=== PATIENT | male | born 1975 | race Caucasian/White ===

== ENCOUNTER 2016-09-28 12:17 | Emergency (ER) | payer OTHER ==
[~2016-09-28] VITALS: Ht 182.9 cm; Wt 139.0 kg
[~2016-09-28 12:17] MED LIST: METO100T PO; OMEP20TA39 PO; PERC5TAB12 PO; SERO400T PO; ULTR50TA PO
[2016-09-28 12:20] VITALS: BP 136/94; PULSE 70; RESP 16; TEMP 99.3; O2SAT 96
--- NOTE | 2016-09-28 14:24 | PD ---
HPI . right arm pain Chief Complaint: Injury Time Seen by Provider: 14:33 Travel History International Travel<30 days: No Contact w/Intl Traveler<30days: No Traveled to known affect area: No History of Present Illness HPI 41-year-old male with history of hypertension here with complaints of right arm pain since lifting object yesterday. Patient was moving object and he felt something pull in his right forearm. He is now complaining of pain in the right forearm when using his hand. He says the pain is somewhat shooting and rated as 6/10 without any movement. He says with movement pain is intensified. He had difficulty sleeping last night because of the different pain sensations he was experiencing. His primary care providers Dr. Taylor. He has no other complaints. PFSH Past Medical History Asthma: Yes Autoimmune Disease: No Anxiety: Yes Depression: Yes Heart Rhythm Problems: No Cancer: No Cardiac Catheterization: No Cardiovascular Problems: No High Cholesterol: No Chemotherapy: No Congestive Heart Failure: No Diabetes: No Diminished Hearing: No Endocrine: No Gastrointestinal Disorders: Yes GERD: Yes (GERD/GALLSTONES) Glaucoma: No Genitourinary: No Headaches: Yes Hepatitis: No Hiatal Hernia: No Hypertension: Yes Immune Disorder: No Inguinal Hernia: Yes Medical other: Yes (GERD) Musculoskeletal: Yes (BULGING DISK LOWER BACK) Neurologic: No Psychiatric: Yes (DEPRESSION) Reproductive: No Respiratory: No Migraines: Yes (OCULAR MIGRANE ON R SIDE OF HEAD WITH TEMP. LOST OF VISION 03 ) Radiation Therapy: No Thyroid Disease: No Ulcer: Yes PNEUMOCCOCAL Vaccine (Year): 2 Past Surgical History Abdominal Surgery: Yes (INGUINAL/UMBILICAL HERNIA REPAIR X3) AICD: No Cardiac Surgery: No Coronary Artery Bypass Graft: No Ear Surgery: No Endocrine Surgery: No Eye Surgery: No Genitourinary Surgery: No Gynecologic Surgery: No Joint Replacement: No Neurologic Surgery: No Oral Surgery: No Pacemaker: No Thoracic Surgery: No Tonsillectomy: Yes Other Surgery: Yes (HEMMORHOIDS AND FISSURE SURGERY 07) Social History Alcohol Use: No Tobacco Use: No Substance Use: No Allergies-Medications (Allergen,Severity, Reaction): Coded Allergies: No Known Allergies (Verified , 09/28/16) Reported Meds & Prescriptions Reported Meds & Active Scripts Active Flexeril (Cyclobenzaprine HCl) 10 Mg Tab 10 Mg PO BID Ibuprofen 800 Mg Tab 800 Mg PO TID Review of Systems General / Constitutional: No: Fever Eyes: No: Visual changes HENT: No: Headaches Cardiovascular: No: Chest Pain or Discomfort Respiratory: No: Shortness of Breath Gastrointestinal: No: Abdominal Pain Genitourinary: No: Dysuria Musculoskeletal: Positive: Pain (right arm pain) Skin: No Rash Neurologic: No: Weakness Psychiatric: No: Depression Endocrine: No: Polydipsia Hematologic/Lymphatic: No: Easy Bruising Physical Exam Narrative GENERAL: AAO x 3, no acute distress, Well-nourished, well-developed patient. SKIN: Warm and dry. No visible rashes or bruising. HEAD: Normocephalic and atraumatic. EYES: No scleral icterus. No injection or drainage. ENT: No nasal drainage noted. Mucous membranes pink. Airway patent. NECK: Supple, trachea midline. No JVD. CARDIOVASCULAR: Regular rate and rhythm without murmurs, gallops, or rubs. RESPIRATORY: Breath sounds equal bilaterally. No accessory muscle use. No rhonchi or rales. GASTROINTESTINAL: Abdomen soft, non-tender, nondistended. EXTREMITIES: No cyanosis or edema. 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 Movement is normal bilateral arms. There is a slight edema in the proximal forearm without any point tenderness or bony abnormality BACK: Nontender without obvious deformity. No CVA tenderness. PSYCH: AAO x 3, normal affect. Data Data Last Documented VS Vital Signs Date Time Temp Pulse Resp B/P Pulse Ox O2 Delivery O2 Flow Rate FiO2 09/28/16 12:20 99.3 70 16 136/94 96 MDM Medical Decision Making Medical Screen Exam Complete: Yes Emergency Medical Condition: Yes Medical Record Reviewed: Yes Differential Diagnosis Tendinitis, muscle strain, less likely acute fracture Narrative Course 41-year-old male with history of hypertension here with complaints of right arm pain since lifting object yesterday. Patient was moving object and he felt something pull in his right forearm. He is now complaining of pain in the right forearm when using his hand. He says the pain is somewhat shooting and rated as 6/10 without any movement. He says with movement pain is intensified. He had difficulty sleeping last night because of the different pain sensations he was experiencing. His primary care providers Dr. Taylor. He has no other complaints. Patient seen and examined. He appears to have a tendinitis and muscle strain. Offered pain injection in ED and patient declined. Recommend course of muscle relaxers and NSAIDs. Discussed that imaging is not indicated as this does not seem to be a bony abnormality. Patient was understanding. Advised if symptoms persist past 7-10 days, follow-up with primary care provider. Patient verbalized understanding of instructions, questions were answered, and thanked me for their care. I advised them if their condition worsens, please return to the nearest emergency room for further care. Diagnosis Primary Impression: Tendonitis Additional Impression: Muscle strain Patient Instructions: General Instructions, Muscle Strain (ED) Additional Instructions: Rest the affected area as much as possible. Ice this area for 15-20 minutes at a time. You can do this every hour or as much as tolerated. Use ibuprofen as needed for pain and inflammation. Please return to emergency department if your symptoms return or worsen. Follow up with your primary care provider. Take medications as prescribed. Muscle relaxers can cause drowsiness. Do not drive, swim or operate heavy machinery while using these medications. If symptoms persist past 7-10 days, please follow with primary care provider. Med/Other Pt SpecificInfo: Prescription(s) given Scripts Cyclobenzaprine (Flexeril)10 Mg Tab10 Mg PO BID #20 TAB Ref 0 Prov:Jorden Kern MD 09/28/16 Ibuprofen 800 Mg [id number] Mg PO TID #21 TAB Prov:Jorden Kern MD 09/28/16 Disposition: 01 DISCHARGE HOME Condition: Stable Sugey Mace Sep 28, 2016 14:24
[2016-09-28] MEDS ORDERED: IBUP800T23 PO (14:39)
[2016-09-28] MEDS ORDERED: CYCL1TAB29 PO (14:39)
== END 2016-09-28 14:46 | disposition home or self-care (01) ==
LOC: PHED 12:17 → PHEFT 14:46
DX: M77.9 Enthesopathy, unspecified (principal); S56.911A Strain of unspecified muscles, fascia and tendons at forearm level, right arm, initial encounter; I10 Essential (primary) hypertension; X50.0XXA Overexertion from strenuous movement or load, initial encounter
CPT/HCPCS: 99283

== ENCOUNTER 2016-11-13 07:42 | Emergency (ER) | payer OTHER ==
[~2016-11-13] VITALS: Ht 182.9 cm; Wt 140.0 kg
[~2016-11-13 07:42] MED LIST changes: +CYCL1TAB29 PO; +IBUP800T23 PO; -METO100T PO; -OMEP20TA39 PO; -PERC5TAB12 PO; -SERO400T PO; -ULTR50TA PO
[2016-11-13 07:48] VITALS: BP 128/94; PULSE 110; RESP 20; TEMP 100.3; O2SAT 97
[2016-11-13] MEDS ORDERED: TRAM50TA PO (08:03)
[2016-11-13] MEDS ORDERED: METO100T PO (08:03)
[2016-11-13] MEDS ORDERED: OMEP20TA PO (08:03)
--- NOTE | 2016-11-13 08:10 | PD ---
HPI Chief Complaint: Respiratory Symptoms Time Seen by Provider: 07:58 Travel History International Travel<30 days: No Contact w/Intl Traveler<30days: No Traveled to known affect area: No History of Present Illness HPI 41yo M with PMH of HTN presents to the ED with c/o productive cough for 4 days. +Rhinorrhea, nasal congestion and sob for 2 days. Unsure of fever since pt has been taking ibuprofen frequently and just it prior to ED arrival. Denies any chest pain, n/v, abdominal pain, diarrhea, focal weakness or numbness. Former cig smoker. PFSH Past Medical History Asthma: Yes Autoimmune Disease: No Anxiety: Yes Depression: Yes Heart Rhythm Problems: No Cancer: No Cardiac Catheterization: No Cardiovascular Problems: Yes High Cholesterol: No Chemotherapy: No Congestive Heart Failure: No Diabetes: No Diminished Hearing: No Endocrine: No Gastrointestinal Disorders: Yes GERD: Yes (GERD/GALLSTONES) Glaucoma: No Genitourinary: No Headaches: Yes Hepatitis: No Hiatal Hernia: No Hypertension: Yes Immune Disorder: No Inguinal Hernia: Yes Medical other: Yes (GERD) Musculoskeletal: Yes (BULGING DISK LOWER BACK) Neurologic: No Psychiatric: Yes (DEPRESSION) Reproductive: No Respiratory: No Migraines: Yes (OCULAR MIGRANE ON R SIDE OF HEAD WITH TEMP. LOST OF VISION 03 ) Radiation Therapy: No Thyroid Disease: No Ulcer: Yes PNEUMOCCOCAL Vaccine (Year): 2 Past Surgical History Abdominal Surgery: Yes (INGUINAL/UMBILICAL HERNIA REPAIR X3) AICD: No Cardiac Surgery: No Coronary Artery Bypass Graft: No Ear Surgery: No Endocrine Surgery: No Eye Surgery: No Genitourinary Surgery: No Gynecologic Surgery: No Joint Replacement: No Neurologic Surgery: No Oral Surgery: No Pacemaker: No Thoracic Surgery: No Tonsillectomy: Yes Other Surgery: Yes (HEMMORHOIDS AND FISSURE SURGERY 07) Social History Alcohol Use: No Tobacco Use: No Substance Use: No Allergies-Medications (Allergen,Severity, Reaction): Coded Allergies: No Known Allergies (Verified , 11/13/16) Reported Meds & Prescriptions Reported Meds & Active Scripts Active Acetaminophen Extra Strength (Acetaminophen) 500 Mg Tab 500 Mg PO Q6H PRN Robitussin 12 Hour Cough Liq (Dextromethorphan Polistirex Liq) 30 Mg/5 Ml Ary 10 Ml PO Q12H PRN 5 Days Deltasone (Prednisone) 20 Mg Tab 20 Mg PO BID 5 Days Ventolin Hfa 18 GM Inh (Albuterol Sulfate) 90 Mcg/Act Aer 2 Puff INH Q4H PRN Reported Tramadol (Tramadol HCl) 50 Mg Tab 50 Mg PO BID PRN Omeprazole 20 Mg Tab 20 Mg PO DAILY Metoprolol Tartrate 100 Mg Tab 100 Mg PO BID Review of Systems Except as stated in HPI: all other systems reviewed are Neg Physical Exam Narrative GENERAL: 41yo M in moderate distress. SKIN: Focused skin assessment warm and diaphoretic. HEAD: Atraumatic. Normocephalic. EYES: Pupils equal and round. No scleral icterus. No injection or drainage. ENT: Throat: Clear. Uvula midline. No exudate. TM wnl bilaterally. NECK: Trachea midline. No JVD. CARDIOVASCULAR: Regular rate and rhythm. No murmur appreciated. RESPIRATORY: + accessory muscle use. Expiratory wheezing and coarse sounds bilaterally. GASTROINTESTINAL: Abdomen soft, non-tender, nondistended. No rebound tenderness or guarding. MUSCULOSKELETAL: No obvious deformities. No clubbing. No cyanosis. Trace bilateral lower ext edema. No calf tenderness bilaterally. NEUROLOGICAL: Awake and alert. No obvious cranial nerve deficits. Motor grossly within normal limits. Normal speech. PSYCHIATRIC: Appropriate mood and affect; insight and judgment normal. Data Data Last Documented VS Vital Signs Date Time Temp Pulse Resp B/P Pulse Ox O2 Delivery O2 Flow Rate FiO2 11/13/16 09:09 98.7 93 18 140/82 95 Room Air Orders Complete Blood Count With Diff (11/13/16 08:06) Basic Metabolic Panel (Bmp) (11/13/16 08:06) B-Type Natriuretic Peptide (11/13/16 08:06) Act Partial Throm Time (Ptt) (11/13/16 08:06) Prothrombin Time / Inr (Pt) (11/13/16 08:06) Magnesium (Mg) (11/13/16 08:06) Ckmb (Isoenzyme) Profile (11/13/16 08:06) Troponin I (11/13/16 08:06) Influenzae A/B Antigen (11/13/16 08:06) Blood Culture (11/13/16 08:06) Iv Access Insert/Monitor (11/13/16 08:06) Electrocardiogram (11/13/16 08:06) Ecg Monitoring (11/13/16 08:06) Oximetry (11/13/16 08:06) Oxygen Administration (11/13/16 08:06) Chest, Single Ap (11/13/16 08:06) Sodium Chloride 0.9% Flush (Ns Flush) (11/13/16 08:15) Methylprednisolone So Succ Inj (Solumedr (11/13/16 08:15) Albuterol-Ipratropium Neb (Duoneb Neb) (11/13/16 08:15) Lactic Acid Sepsis Protocol (11/13/16 08:10) Sodium Chlor 0.9% 1000 Ml Inj (Ns 1000 M (11/13/16 08:15) Ibuprofen (Motrin) (11/13/16 09:15) Guaifen-Cod 200-20 Mg/10ml Liq (Robituss (11/13/16 09:15) Acetaminophen (Tylenol) (11/13/16 09:15) Labs Laboratory Tests Test 11/13/16 11/13/16 08:20 08:30 White Blood Count 7.2 TH/MM3 Red Blood Count 5.39 MIL/MM3 Hemoglobin 15.8 GM/DL Hematocrit 46.6 % Mean Corpuscular Volume 86.4 FL Mean Corpuscular Hemoglobin 29.3 PG Mean Corpuscular Hemoglobin 33.8 % Concent Red Cell Distribution Width 12.9 % Platelet Count 290 TH/MM3 Mean Platelet Volume 7.7 FL Neutrophils (%) (Auto) 69.7 % Lymphocytes (%) (Auto) 15.6 % Monocytes (%) (Auto) 11.3 % Eosinophils (%) (Auto) 2.7 % Basophils (%) (Auto) 0.7 % Neutrophils # (Auto) 5.0 TH/MM3 Lymphocytes # (Auto) 1.1 TH/MM3 Monocytes # (Auto) 0.8 TH/MM3 Eosinophils # (Auto) 0.2 TH/MM3 Basophils # (Auto) 0.1 TH/MM3 CBC Comment DIFF FINAL Differential Comment Prothrombin Time 9.8 SEC Prothromb Time International 0.9 RATIO Ratio Activated Partial 26.5 SEC Thromboplast Time Sodium Level 141 MEQ/L Potassium Level 4.3 MEQ/L Chloride Level 104 MEQ/L Carbon Dioxide Level 28.5 MEQ/L Anion Gap 9 MEQ/L Blood Urea Nitrogen 13 MG/DL Creatinine 1.20 MG/DL Estimat Glomerular Filtration 67 ML/MIN Rate Random Glucose 173 MG/DL Calcium Level 9.8 MG/DL Magnesium Level 2.1 MG/DL Total Creatine Kinase 61 U/L Troponin I LESS THAN 0.02 NG/ML B-Type Natriuretic Peptide 11 PG/ML Lactic Acid Level 1.9 mmol/L MDM Medical Decision Making Medical Screen Exam Complete: Yes Emergency Medical Condition: Yes Interpretation(s) EKG: NSR 96bpm. LAD. No ST segment elevation or depression. Laboratory Tests Test 11/13/16 11/13/16 08:20 08:30 White Blood Count 7.2 TH/MM3 (4.0-11.0) Red Blood Count 5.39 MIL/MM3 (4.50-5.90) Hemoglobin 15.8 GM/DL (13.0-17.0) Hematocrit 46.6 % (39.0-51.0) Mean Corpuscular Volume 86.4 FL (80.0-100.0) Mean Corpuscular Hemoglobin 29.3 PG (27.0-34.0) Mean Corpuscular Hemoglobin 33.8 % Concent (32.0-36.0) Red Cell Distribution Width 12.9 % (11.6-17.2) Platelet Count 290 TH/MM3 (150-450) Mean Platelet Volume 7.7 FL (7.0-11.0) Neutrophils (%) (Auto) 69.7 % (16.0-70.0) Lymphocytes (%) (Auto) 15.6 % (9.0-44.0) Monocytes (%) (Auto) 11.3 % (0.0-8.0) Eosinophils (%) (Auto) 2.7 % (0.0-4.0) Basophils (%) (Auto) 0.7 % (0.0-2.0) Neutrophils # (Auto) 5.0 TH/MM3 (1.8-7.7) Lymphocytes # (Auto) 1.1 TH/MM3 (1.0-4.8) Monocytes # (Auto) 0.8 TH/MM3 (0-0.9) Eosinophils # (Auto) 0.2 TH/MM3 (0-0.4) Basophils # (Auto) 0.1 TH/MM3 (0-0.2) CBC Comment DIFF FINAL Differential Comment Prothrombin Time 9.8 SEC (9.8-11.6) Prothromb Time International 0.9 RATIO Ratio Activated Partial 26.5 SEC Thromboplast Time (24.3-30.1) Sodium Level 141 MEQ/L (136-145) Potassium Level 4.3 MEQ/L (3.5-5.1) Chloride Level 104 MEQ/L (98-107) Carbon Dioxide Level 28.5 MEQ/L (21.0-32.0) Anion Gap 9 MEQ/L (5-15) Blood Urea Nitrogen 13 MG/DL (7-18) Creatinine 1.20 MG/DL (0.60-1.30) Estimat Glomerular Filtration 67 ML/MIN (>89) Rate Random Glucose 173 MG/DL (74-106) Calcium Level 9.8 MG/DL (8.5-10.1) Magnesium Level 2.1 MG/DL (1.5-2.5) Total Creatine Kinase 61 U/L (39-308) Troponin I LESS THAN 0.02 NG/ML (0.02-0.05) B-Type Natriuretic Peptide 11 PG/ML (0-100) Lactic Acid Level 1.9 mmol/L (0.4-2.0) Last Impressions Chest X-Ray 11/13/16 0806 Signed Impressions: Service Date/Time: Sunday, November 13, 2016 08:19 - CONCLUSION: 1. Right basilar atelectasis. Moreno Her MD Differential Diagnosis Pneumonia vs. URI vs. influenza vs. COPD vs. reactive airway disease vs. CHF Narrative Course 41yo M with flu like symptoms. Pt does have wheezing and coarse breath sounds and was former smoker so will treat with duonebs x3, methylprednisolone 125mg IV. Pt had temp of 100.3F and HR of 110 so lactic acid was ordered. NS IVF x1 given. Labs reviewed, no leukocytosis. Troponin negative. BNP 11. Lactic acid 1.9. Influenza negative. CXR showed right basilar atelectasis. Pt reevaluated at bedside. Pt is breathing better but is complaining about the cough. Lung exam showed improved air movement and expiratory wheezing. HR: 90s. Pt given acetaminophen and robitussin and reevaluated at bedside. States cough and pain has improved. Pt is well appearing. Lung exam has improved. Temp is 98.7F. Return precautions given. Diagnosis Primary Impression: URI (upper respiratory infection) Qualified Code: J06.9 - Upper respiratory tract infection, unspecified type Patient Instructions: General Instructions Departure Forms: Tests/Procedures, Work Release Enter return to work date: November 16, 2016 Additional Instructions: Please follow up with your PMD in 2-3 days. Return to the ED if symptoms worsen. Med/Other Pt SpecificInfo: Prescription(s) given Scripts Acetaminophen (Acetaminophen Extra Strength)500 Mg [id number] Mg PO Q6H PRN (PAIN SCALE 1 TO 4) #20 TAB Ref 0 Prov:Chaparrita Doherty DO 11/13/16 Dextromethorphan Polistirex Liq (Robitussin 12 Hour Cough Liq)30 Mg/5 Ml Sus10 Ml PO Q12H PRN (COUGH) 5 Days Ref 0 Prov:Chaparrita Doherty DO 11/13/16 Prednisone (Deltasone)20 Mg Tab20 Mg PO BID 5 Days Ref 0 Prov:Chaparrita Doherty DO 11/13/16 Albuterol 18 GM Inh (Ventolin Hfa 18 GM Inh)90 Mcg/Act Aer2 Puff INH Q4H PRN ( SHORTNESS OF BREATH) #1 INHALER Ref 0 Prov:Chaparrita Doherty DO 11/13/16 Disposition: 01 DISCHARGE HOME Condition: Stable Chaparrita Doherty DO November 13, 2016 08:09
[2016-11-13] MEDS ORDERED: SODIUM CHLOR 0.9% 1000 ML INJ 1,000 ML IV ONE (08:15)
[2016-11-13] MEDS ORDERED: SODIUM CHLORIDE 0.9% FLUSH 10 ML FLUSH IVF PRN (08:15)
[2016-11-13] MEDS ORDERED: methylPREDNISolone SOD SUCC 125 MG/2 ML VIAL IVP ONE (08:15)
[2016-11-13 08:20] VITALS: O2SAT 96
[2016-11-13] MEDS: RESP: ALBUTEROL 2.5 MG/IPRATROPIUM 0.5 MG NEB (SCH) INH (08:24)
[2016-11-13 08:26] LABS: BASOPHIL # 0.1 TH/MM3 (0-0.2); BASOPHIL % 0.7 % (0.0-2.0); EOSINOPHIL # 0.2 TH/MM3 (0-0.4); EOSINOPHIL % 2.7 % (0.0-4.0); HEMATOCRIT 46.6 % (39.0-51.0); HEMO FLAGS DIFF FINAL; LYMPH % 15.6 % (9.0-44.0); LYMPHOCYTE # 1.1 TH/MM3 (1.0-4.8); MEAN CELL VOLUME 86.4 FL (80.0-100.0); MEAN CORPUSCULAR HEMOGLOBIN 29.3 PG (27.0-34.0); MEAN CORPUSCULAR HGB CONC 33.8 % (32.0-36.0); MONO % 11.3 % (0.0-8.0); NEUT % 69.7 % (16.0-70.0); PLATELET COUNT 290 TH/MM3 (150-450); RED BLOOD COUNT 5.39 MIL/MM3 (4.50-5.90); RED CELL DISTRIBUTION WIDTH 12.9 % (11.6-17.2); WHITE BLOOD COUNT 7.2 TH/MM3 (4.0-11.0)
[2016-11-13 08:34] LABS: CHLORIDE 104 MEQ/L (98-107); POTASSIUM 4.3 MEQ/L (3.5-5.1); SODIUM (NA) 141 MEQ/L (136-145)
[2016-11-13 08:37] LABS: ANION GAP 9 MEQ/L (5-15); BICARBONATE 28.5 MEQ/L (21.0-32.0); BLOOD UREA NITROGEN 13 MG/DL (7-18); MAGNESIUM 2.1 MG/DL (1.5-2.5)
[2016-11-13 08:40] LABS: APTT (PATIENT) 26.5 SEC (24.3-30.1); GLOMERULAR FILTRATION RATE 67 ML/MIN (>89); INTERNATIONAL NORMALIZED RATIO 0.9 RATIO; PROTHROMBIN TIME - PATIENT 9.8 SEC (9.8-11.6)
--- NOTE | 2016-11-13 08:43 | RADHPO ---
EXAM DATE/TIME: 11/13/2016 08:19 [facility] COMPARISON: No previous studies available for comparison. INDICATIONS : Cough, short of breath. MEDICAL HISTORY : Hypertension. SURGICAL HISTORY : None. ENCOUNTER: Initial ACUITY: 3 days PAIN SCORE: 0/10 LOCATION: Bilateral chest FINDINGS: A single view of the chest demonstrates right basilar atelectasis. Left lung clear. Heart in the uppe r limits of normal in size. The cardiomediastinal contours are unremarkable. Osseous structures are intact. CONCLUSION: 1. Right basilar atelectasis. Moreno Her MD on November 13, 2016 at 8:41 Board Certified Radiologist. This report was verified electronically.
[2016-11-13 08:45] LABS: CREATINE KINASE 61 U/L (39-308)
[2016-11-13 09:09] VITALS: BP 140/82; PULSE 93; RESP 18; TEMP 98.7; O2SAT 95
[2016-11-13] MEDS ORDERED: IBUPROFEN 600 MG TAB PO ONE (09:15)
[2016-11-13] MEDS ORDERED: VENTAER INH (09:15)
[2016-11-13] MEDS ORDERED: PRED-503 PO (09:15)
[2016-11-13] MEDS ORDERED: guaiFENesin/CODEINE SYRUP 200 MG/20 MG/10 ML CUP PO ONE (09:15)
[2016-11-13] MEDS ORDERED: ACET500T36 PO (09:15)
[2016-11-13] MEDS ORDERED: DEXT1SUS PO (09:15)
[2016-11-13] MEDS ORDERED: ACETAMINOPHEN 325 MG TAB PO ONE (09:15)
--- NOTE | 2016-11-13 15:53 | EKG ---
Date Performed: 11/13/2016 Time Performed: 08:08:32 PTAGE: 41 years EKG: Sinus rhythm Left axis deviation Inferior infarct - age undetermined Compared to prior tracing no significant davian nge Abnormal ECG PREVIOUS TRACING : 12/01/2014 16.13 DOCTOR: Byron Amaya Interpretating Date/Time 11/13/2016 15:49:28
== END 2016-11-13 09:39 | disposition home or self-care (01) ==
LOC: PHED 07:42
DX: J06.9 Acute upper respiratory infection, unspecified (principal); R94.31 Abnormal electrocardiogram [ECG] [EKG]; I10 Essential (primary) hypertension; J45.909 Unspecified asthma, uncomplicated; K21.9 Gastro-esophageal reflux disease without esophagitis; Z87.891 Personal history of nicotine dependence
CPT/HCPCS: 71010; 80048; 82550; 83605; 83735; 83880; 84484; 85025; 85610; 85730; 87040; 87804; 93005; 94640; 94664; 96361; 96374; 99284; J2930; J7030

== ENCOUNTER 2017-05-25 11:34 | Emergency (ER) | payer OTHER ==
[~2017-05-25] VITALS: Ht 182.9 cm; Wt 142.0 kg
[~2017-05-25 11:34] MED LIST changes: +ACET500T36 PO; -CYCL1TAB29 PO; +DEXT1SUS PO; -IBUP800T23 PO; +METO100T PO; +OMEP20TA93 PO; +PRED-503 PO; +TRAM50TA PO; +VENTAER INH
[2017-05-25 11:41] VITALS: BP 123/82; PULSE 70; RESP 16; TEMP 98.6; O2SAT 96
[2017-05-25] MEDS ORDERED: IBUP-1129 PO (11:55)
[2017-05-25] MEDS ORDERED: OMEP20TA93 PO (11:55)
--- NOTE | 2017-05-25 12:28 | PD ---
HPI Chief Complaint: Abdominal Pain Time Seen by Provider: 12:24 Travel History International Travel<30 days: No Contact w/Intl Traveler<30days: No Traveled to known affect area: No History of Present Illness HPI Patient presents with complaints of anterior abdominal pain. States he was pushing his car after ran out of gas approximate hour prior to procedure when he felt something give in his abdomen. Reports multiple hernia repairs including inguinal and umbilical hernia repairs. Denies any acute change in bowels or urination. Denies any nausea or vomiting. PFSH Past Medical History Arthritis: Yes Asthma: Yes Autoimmune Disease: No Blood Disorders: Yes (BLEEDING ULCER STOMACH) Anxiety: Yes Depression: Yes Heart Rhythm Problems: No Cancer: No Cardiac Catheterization: No Cardiovascular Problems: Yes High Cholesterol: No Chemotherapy: No Congestive Heart Failure: No Diabetes: No Diminished Hearing: No Endocrine: No Gastrointestinal Disorders: Yes GERD: Yes (GERD/GALLSTONES) Glaucoma: No Genitourinary: No Headaches: Yes Hepatitis: No Hiatal Hernia: No Hypertension: Yes Immune Disorder: No Inguinal Hernia: Yes Medical other: Yes (GERD) Musculoskeletal: Yes (BULGING DISK LOWER BACK) Neurologic: No Psychiatric: Yes (DEPRESSION) Reproductive: No Respiratory: No Migraines: Yes (OCULAR MIGRANE ON R SIDE OF HEAD WITH TEMP. LOST OF VISION 03 ) Radiation Therapy: No Thyroid Disease: No Ulcer: Yes Tetanus Vaccination: > 5 Years Influenza Vaccination: Yes PNEUMOCCOCAL Vaccine (Year): 2 Past Surgical History Abdominal Surgery: Yes (INGUINAL/UMBILICAL HERNIA REPAIR X3) AICD: No Cardiac Surgery: No Coronary Artery Bypass Graft: No Ear Surgery: No Endocrine Surgery: No Eye Surgery: No Genitourinary Surgery: No Gynecologic Surgery: No Joint Replacement: No Neurologic Surgery: No Oral Surgery: No Pacemaker: No Thoracic Surgery: No Tonsillectomy: Yes Other Surgery: Yes (HEMMORHOIDS AND FISSURE SURGERY 07) Social History Alcohol Use: No Tobacco Use: No Substance Use: No Allergies-Medications (Allergen,Severity, Reaction): Coded Allergies: No Known Allergies (Verified Adverse Reaction, Unknown, 05/25/17) Reported Meds & Prescriptions Reported Meds & Active Scripts Active Soma (Carisoprodol) 250 Mg Tab 250 Mg PO TID PRN Hydrocodone-Acetaminophen 5-325 mg Tab 1 Tab PO Q4H PRN Reported Motrin Ib (Ibuprofen) 200 Mg Tablet 1 Tab PO Q4HR Omeprazole 20 Mg Tab 20 Mg PO DAILY Tramadol (Tramadol HCl) 50 Mg Tab 50 Mg PO BID PRN Metoprolol Tartrate 100 Mg Tab 100 Mg PO BID Review of Systems General / Constitutional: No: Fever Eyes: No: Visual changes HENT: No: Headaches Cardiovascular: No: Chest Pain or Discomfort Respiratory: No: Shortness of Breath Gastrointestinal: Positive: Abdominal Pain Genitourinary: No: Dysuria Musculoskeletal: No: Pain Skin: No Rash Neurologic: No: Weakness Psychiatric: No: Depression Endocrine: No: Polydipsia Hematologic/Lymphatic: No: Easy Bruising Physical Exam Narrative GENERAL: Well-nourished, well-developed patient. SKIN: Focused skin assessment warm/dry. HEAD: Normocephalic. EYES: No scleral icterus. No injection or drainage. NECK: Supple, trachea midline. No JVD or lymphadenopathy. CARDIOVASCULAR: Regular rate and rhythm without murmurs, gallops, or rubs. RESPIRATORY: Breath sounds equal bilaterally. No accessory muscle use. GASTROINTESTINAL: Abdomen soft, diffusely tender mid abdomen above the umbilicus , nondistended. Mid abdominal wall weakness on Valsalva MUSCULOSKELETAL: No cyanosis, or edema. BACK: Nontender without obvious deformity. No CVA tenderness. Data Data Last Documented VS Vital Signs Date Time Temp Pulse Resp B/P (MAP) Pulse Ox O2 Delivery O2 Flow Rate FiO2 05/25/17 11:41 98.6 70 16 123/82 (96) [address] Abd/Pel W Iv Contrast(Rout) (05/25/17 ) Ketorolac Inj (Toradol Inj) (05/25/17 12:45) Iohexol 350 Inj (Omnipaque 350 Inj) (05/25/17 13:08) MDM Medical Decision Making Medical Screen Exam Complete: Yes Emergency Medical Condition: Yes Differential Diagnosis Abdominal hernia, abdominal strain, bowel obstruction Narrative Course Assessment and plan discussed with patient at bedside. Last 72 hours Impressions Abdomen/Pelvis CT 05/25/17 0000 Signed Impressions: Service Date/Time: Saturday, May 25, 2017 12:53 - CONCLUSION: 1. Hepatomegaly and hepatic steatosis. 2. No inflammatory changes are seen within the abdomen or pelvis. Beau Reid MD Diagnosis Primary Impression: Abdominal wall strain Qualified Codes: S39.011A - Strain of muscle, fascia and tendon of abdomen, initial encounter Patient Instructions: General Instructions Additional Instructions: Encouraged gentle stretching and strengthening and warm heat, encouraged nonsteroidal anti-inflammatories, encouraged pain medication and muscle relaxer as needed, encouraged to follow-up with PCP. Return to emergency room with any onset of new symptoms. Please provide a work note for 3 days. Med/Other Pt SpecificInfo: Prescription(s) given Scripts Carisoprodol (Soma) 250 Mg Tab 250 MG PO TID Y for PAIN, #30 TAB 0 Refills Prov: Jaison Hong MD 05/25/17 Hydrocodone-Acetaminophen (Hydrocodone-Acetaminophen) 5-325 mg Tab 1 TAB PO Q4H Y for PAIN, #20 TAB 0 Refills Prov: Jaison Hong MD 05/25/17 Disposition: 01 DISCHARGE HOME Condition: Good Jaison Hong MD May 25, 2017 12:28
[2017-05-25] MEDS ORDERED: KETOROLAC TROMETHAMINE 30 MG/ML (IVP) VIAL IV PUSH ONE (12:45)
[2017-05-25] MEDS ORDERED: IOHEXOL 350 MG/ML 10 ML VIAL (for RAD DIAG) IVCONTRAST ONE (13:08)
--- NOTE | 2017-05-25 13:16 | RADRPT ---
EXAM DATE/TIME: 05/25/2017 12:53 [facility] COMPARISON: CT ABDOMEN & PELVIS W CONTRAST, January 29, 2015, 11:14. INDICATIONS : Right abdominal pain. IV CONTRAST: 100 cc Omnipaque 350 (iohexol) IV ORAL CONTRAST: No oral contrast ingested. RADIATION DOSE: 22.39 CTDIvol (mGy) MEDICAL HISTORY : Cardiovascular disease. Hypertension. Asthma,Gerd, Gallstones. SURGICAL HISTORY : Inguinal hernia repair. Umbiblical hernia ENCOUNTER: Initial ACUITY: 1 day PAIN SCALE: 9/10 LOCATION: Right abdominal TECHNIQUE: Volumetric scanning of the abdomen and pelvis was performed. Using automated exposure control and ad justment of the mA and/or kV according to patient size, radiation dose was kept as low as reasonably achievable to obtain optimal diagnostic quality images. DICOM format image data is available electro nically for review and comparison. FINDINGS: Lung bases are clear. Osseous structures are intact. No pleural or pericardial effusions are seen. Th ere is hepatomegaly and hepatic steatosis. The patient is status post cholecystectomy. Spleen, pancre as, kidneys, adrenal glands are unremarkable. There are 2 splenule seen adjacent to the splenic hilum . Mesh repair of ventral hernia identified with mild ventral bulging of the abdominal wall and diasta sis of the rectus abdominis musculature. Urinary bladder unremarkable. There is no evidence of bowel obstruction, free fluid or free air. Appendix normal. No adenopathy or aneurysm. CONCLUSION: 1. Hepatomegaly and hepatic steatosis. 2. No inflammatory changes are seen within the abdomen or pelvis. Beau Reid MD on May 25, 2017 at 13:12 Board Certified Radiologist. This report was verified electronically.
[2017-05-25] MEDS ORDERED: SOMA250T PO (13:36)
[2017-05-25] MEDS ORDERED: HYDR-3516 PO (13:36)
[2017-05-25 13:56] VITALS: RESP 18
[2017-05-25 13:57] VITALS: BP 124/65
== END 2017-05-25 13:58 | disposition home or self-care (01) ==
LOC: PHED 11:34
DX: S39.011A Strain of muscle, fascia and tendon of abdomen, initial encounter (principal); K76.0 Fatty (change of) liver, not elsewhere classified; X58.XXXA Exposure to other specified factors, initial encounter; I10 Essential (primary) hypertension; J45.909 Unspecified asthma, uncomplicated; F32.9 Major depressive disorder, single episode, unspecified; Z79.899 Other long term (current) drug therapy
CPT/HCPCS: 74177; 96374; 99285; J1885; Q9967

== ENCOUNTER 2017-07-06 11:17 | Emergency (ER) | payer OTHER ==
[~2017-07-06] VITALS: Ht 182.9 cm; Wt 140.0 kg
[~2017-07-06 11:17] MED LIST changes: -ACET500T36 PO; -DEXT1SUS PO; +HYDR-3516 PO; +IBUP-1129 PO; -PRED-503 PO; +SOMA250T PO; -VENTAER INH
[2017-07-06 11:20] VITALS: BP 134/89; PULSE 77; RESP 16; TEMP 98.6; O2SAT 96
--- NOTE | 2017-07-06 12:35 | PD ---
HPI Chief Complaint: Cold / Flu Symptoms Time Seen by Provider: 11:57 Travel History International Travel<30 days: No Contact w/Intl Traveler<30days: No Traveled to known affect area: No History of Present Illness HPI 41-year-old male presents to the emergency department complaining of cough and cold-like symptoms 4 days. Patient states that he has had occasional cough with clear phlegm and has also had a mild headache with body aches. Has clear rhinorrhea. Patient states that he had chills but denies fever. States coworkers are also sick. He denies nausea, vomiting or diarrhea. Denies chest pain or shortness of breath. He says he is having a hard time at work with his cough which is why he is here today. He has lost sleep secondary to his symptoms. PFSH Past Medical History Arthritis: Yes Asthma: Yes Autoimmune Disease: No Blood Disorders: Yes (BLEEDING ULCER STOMACH) Anxiety: Yes Depression: Yes Heart Rhythm Problems: No Cancer: No Cardiac Catheterization: No Cardiovascular Problems: Yes High Cholesterol: No Chemotherapy: No Congestive Heart Failure: No Diabetes: No Diminished Hearing: No Endocrine: No Gastrointestinal Disorders: Yes GERD: Yes (GERD/GALLSTONES) Glaucoma: No Genitourinary: No Headaches: Yes Hepatitis: No Hiatal Hernia: No Hypertension: Yes Immune Disorder: No Inguinal Hernia: Yes Musculoskeletal: Yes (BULGING DISK LOWER BACK) Neurologic: No Psychiatric: Yes (DEPRESSION) Reproductive: No Respiratory: No Migraines: Yes (OCULAR MIGRANE ON R SIDE OF HEAD WITH TEMP. LOST OF VISION 03 ) Radiation Therapy: No Thyroid Disease: No Ulcer: Yes PNEUMOCCOCAL Vaccine (Year): 2 Past Surgical History Abdominal Surgery: Yes (INGUINAL/UMBILICAL HERNIA REPAIR X3) AICD: No Cardiac Surgery: No Coronary Artery Bypass Graft: No Ear Surgery: No Endocrine Surgery: No Eye Surgery: No Genitourinary Surgery: No Gynecologic Surgery: No Joint Replacement: No Neurologic Surgery: No Oral Surgery: No Pacemaker: No Thoracic Surgery: No Tonsillectomy: Yes Other Surgery: Yes (HEMMORHOIDS AND FISSURE SURGERY 07) Social History Alcohol Use: No Tobacco Use: No Substance Use: No Allergies-Medications (Allergen,Severity, Reaction): Coded Allergies: No Known Allergies (Verified Adverse Reaction, Unknown, 07/06/17) Reported Meds & Prescriptions Reported Meds & Active Scripts Active Tessalon Perles (Benzonatate) 100 Mg Cap 100 Mg PO TID PRN 3 Days Azithromycin 250 Mg Tab 250 Mg PO DIRECTED Take 2 tabs (500 mg) on day 1 then 1 tab daily x 4 days. Reported Omeprazole 20 Mg Tab 20 Mg PO DAILY Tramadol (Tramadol HCl) 50 Mg Tab 50 Mg PO BID PRN Metoprolol Tartrate 100 Mg Tab 100 Mg PO BID Review of Systems Except as stated in HPI: all other systems reviewed are Neg Physical Exam Narrative GENERAL: Well-nourished, well-developed patient. SKIN: Focused skin assessment warm/dry. HEAD: Normocephalic. EYES: No scleral icterus. No injection or drainage. THROAT: No pharyngeal injection, exudates, or tonsillar hypertrophy. Airway is patent. NECK: Supple, trachea midline. No JVD or lymphadenopathy. CARDIOVASCULAR: Regular rate and rhythm without murmurs, gallops, or rubs. RESPIRATORY: Breath sounds equal bilaterally. No accessory muscle use. Left lung parekh- faint rhonchi GASTROINTESTINAL: Abdomen soft, non-tender, nondistended. MUSCULOSKELETAL: No cyanosis, or edema. BACK: Nontender without obvious deformity. No CVA tenderness. Data Data Last Documented VS Vital Signs Date Time Temp Pulse Resp B/P (MAP) Pulse Ox O2 Delivery O2 Flow Rate FiO2 07/06/17 11:31 20 96 07/06/17 11:20 98.6 77 134/89 (104) Orders Orders Chest, Pa & Lat (07/06/17 ) Ed Discharge Order (07/06/17 13:19) MDM Medical Decision Making Medical Screen Exam Complete: Yes Emergency Medical Condition: Yes Differential Diagnosis Upper respiratory infection, influenza, bronchitis, pneumonia Narrative Course 41-year-old male presents to the emergency department complaining of cough and cold-like symptoms 4 days. Patient states that he has had occasional cough with clear phlegm and has also had a mild headache with body aches. Has clear rhinorrhea. Patient states that he had chills but denies fever. States coworkers are also sick. He denies nausea, vomiting or diarrhea. Denies chest pain or shortness of breath. He says he is having a hard time at work which is why he is here today. He has lost sleep secondary to his symptoms. Vital Signs Date Time Temp Pulse Resp B/P (MAP) Pulse Ox O2 Delivery O2 Flow Rate FiO2 07/06/17 11:31 20 96 07/06/17 11:20 98.6 77 16 134/89 (104) 96 Physical Exam findings consistent with an upper respiratory infection versus bronchitis versus pneumonia. Last Impressions Chest X-Ray 07/06/17 0000 Signed Impressions: Service Date/Time: Thursday, July 06, 2017 12:09 - CONCLUSION: No acute disease. Jj Galindo MD Pt will be discharged with azithromycin and tessalon pearles. It does not appear pt has a very active lifestyle and therefore would likely have worsening symptoms. I explained that he should only take azithromycin if he worsened over the next few days. Pt states understanding and will comply. I am still convinced this is bacterial however, because of the above, will potentially cover for a bacterial process. Advised pt to follow up with his PCP. Return to the ED for worsening symptoms. Diagnosis Primary Impression: Bronchitis Referrals: Primary Care Physician Additional Instructions: Follow up with your primary care physician within 2-3 days. If your symptoms persist or worsen, return to the emergency department. As discussed, start azithromycin only if your symptoms worsen over the next 2-3 days as her symptoms are likely of viral etiology. He may use Tessalon Perles as needed for her cough. Scripts Benzonatate (Tessalon Perles) 100 Mg Cap 100 MG PO TID Y for COUGH for 3 Days, CAP 0 Refills Prov: Izabela Gilmore 07/06/17 Azithromycin (Azithromycin) 250 Mg Tab 250 MG PO DIRECTED for Infection, #6 TAB 0 Refills Take 2 tabs (500 mg) on day 1 then 1 tab daily x 4 days. Prov: Izabela Gilmore 07/06/17 Disposition: 01 DISCHARGE HOME Condition: Stable Izabela Gilmore Jul 06, 2017 12:35
--- NOTE | 2017-07-06 13:04 | RADRPT ---
EXAM DATE/TIME: 07/06/2017 12:09 [facility] COMPARISON: No previous studies available for comparison. INDICATIONS : Cough, chest pains MEDICAL HISTORY : None. SURGICAL HISTORY : None. ENCOUNTER: Initial ACUITY: 4 - 6 days PAIN SCORE: 4/10 LOCATION: Bilateral chest FINDINGS: PA and lateral views of the chest demonstrate the lungs to be symmetrically aerated without evidence of mass, infiltrate or effusion. The cardiomediastinal contours are unremarkable. Osseous structure s are intact. CONCLUSION: No acute disease. Jj Galindo MD on July 06, 2017 at 13:00 Board Certified Radiologist. This report was verified electronically.
[2017-07-06] MEDS ORDERED: AZIT250T3 PO (13:18)
[2017-07-06] MEDS ORDERED: BENZ100 PO (13:18)
== END 2017-07-06 13:33 | disposition home or self-care (01) ==
LOC: PHEFT 11:17
DX: J40 Bronchitis, not specified as acute or chronic (principal); R51 Headache; M19.90 Unspecified osteoarthritis, unspecified site; J45.909 Unspecified asthma, uncomplicated; F41.9 Anxiety disorder, unspecified; F32.9 Major depressive disorder, single episode, unspecified; K21.9 Gastro-esophageal reflux disease without esophagitis; I10 Essential (primary) hypertension; Z79.899 Other long term (current) drug therapy
CPT/HCPCS: 71020; 99284

== ENCOUNTER 2017-07-08 14:48 | Emergency (ER) | payer OTHER ==
[~2017-07-08] VITALS: Ht 182.9 cm; Wt 142.0 kg
[~2017-07-08 14:48] MED LIST changes: +AZIT250T3 PO; +BENZ100 PO
[2017-07-08 14:53] VITALS: BP 163/75; PULSE 78; RESP 16; TEMP 98.7; O2SAT 98
[2017-07-08] MEDS ORDERED: VENTAER INH (15:20)
--- NOTE | 2017-07-08 15:24 | PD ---
HPI Chief Complaint: GI Complaint Time Seen by Provider: 15:00 Travel History International Travel<30 days: No Contact w/Intl Traveler<30days: No Traveled to known affect area: No History of Present Illness HPI This patient complains of cough. He is coughing up colored phlegm which has some blood-tinged in it at times. He is a nonsmoker. No fever. He is not having chest pain. Symptoms severity is moderate. He was here 2 days ago and had negative chest x-ray PFSH Past Medical History Hx Anticoagulant Therapy: No Arthritis: Yes Asthma: Yes Autoimmune Disease: No Blood Disorders: Yes (BLEEDING ULCER STOMACH) Anxiety: Yes Depression: Yes Heart Rhythm Problems: No Cancer: No Cardiac Catheterization: No Cardiovascular Problems: Yes (HTN) High Cholesterol: No Chemotherapy: No Congestive Heart Failure: No Diabetes: No Diminished Hearing: No Endocrine: No Gastrointestinal Disorders: Yes GERD: Yes (GERD/GALLSTONES) Glaucoma: No Genitourinary: No Headaches: Yes Hepatitis: No Hiatal Hernia: No Hypertension: Yes Immune Disorder: No Inguinal Hernia: Yes Medical other: Yes (GERD) Musculoskeletal: Yes (BULGING DISK LOWER BACK) Neurologic: No Psychiatric: Yes (DEPRESSION) Reproductive: No Respiratory: No Migraines: Yes (OCULAR MIGRANE ON R SIDE OF HEAD WITH TEMP. LOST OF VISION 03 ) Radiation Therapy: No Thyroid Disease: No Ulcer: Yes Tetanus Vaccination: > 5 Years Influenza Vaccination: No PNEUMOCCOCAL Vaccine (Year): 2 Past Surgical History Abdominal Surgery: Yes (INGUINAL/UMBILICAL HERNIA REPAIR X3) AICD: No Cardiac Surgery: No Coronary Artery Bypass Graft: No Ear Surgery: No Endocrine Surgery: No Eye Surgery: No Genitourinary Surgery: No Gynecologic Surgery: No Joint Replacement: No Neurologic Surgery: No Oral Surgery: No Pacemaker: No Thoracic Surgery: No Tonsillectomy: Yes (and adenoids) Other Surgery: Yes (HEMMORHOIDS AND FISSURE SURGERY 07) Social History Alcohol Use: No Tobacco Use: No Substance Use: No Allergies-Medications (Allergen,Severity, Reaction): Coded Allergies: No Known Allergies (Verified Adverse Reaction, Unknown, 07/08/17) Reported Meds & Prescriptions Reported Meds & Active Scripts Active Ventolin Hfa 18 GM Inh (Albuterol Sulfate) 90 Mcg/Act Aer 2 Puff INH Q4-6H PRN Tessalon Perles (Benzonatate) 100 Mg Cap 100 Mg PO TID PRN 3 Days Azithromycin 250 Mg Tab 250 Mg PO DIRECTED Take 2 tabs (500 mg) on day 1 then 1 tab daily x 4 days. Reported Omeprazole 20 Mg Tab 20 Mg PO DAILY Tramadol (Tramadol HCl) 50 Mg Tab 50 Mg PO BID PRN Metoprolol Tartrate 100 Mg Tab 100 Mg PO BID Review of Systems General / Constitutional: No: Fever HENT: No: Headaches Cardiovascular: No: Chest Pain or Discomfort Respiratory: Positive: Cough Physical Exam Narrative RESPIRATORY: Respiratory effort unlabored, no retractions or use of accessory muscles. Breath sounds reveal mild expiratory wheeze and are symmetric. CARDIOVASCULAR: Regular rate and rhythm without murmur. Extremities showed no edema or varicosities. GASTROINTESTINAL: Abdomen soft, non-tender, nondistended. Positive bowel sounds. No hepato-splenomegaly, or palpable masses. No guarding. Throat clear Data Data Last Documented VS Vital Signs Date Time Temp Pulse Resp B/P (MAP) Pulse Ox O2 Delivery O2 Flow Rate FiO2 07/08/17 14:53 98.7 78 16 163/75 (104) 98 MDM Medical Decision Making Medical Screen Exam Complete: Yes Emergency Medical Condition: Yes Medical Record Reviewed: Yes Differential Diagnosis Proctitis, pneumonia, and endobronchial lesion Narrative Course I have reviewed the patient's electronic medical record. Reviewed his visit from 2 days ago including negative chest x-ray Patient presentation is consistent with bronchitis He will start the Zithromax prescription he received but hasn't started yet I wrote him an albuterol inhaler to use as needed He should contact his primary physician for follow-up and discuss the blood in his sputum to determine whether they want to do chest CT or any further extensive workup. Diagnosis Primary Impression: Acute bronchitis Qualified Codes: J20.9 - Acute bronchitis, unspecified Additional Impression: Wheezing Additional Instructions: The patient was advised to follow up with their physician and return if they worsen. Med/Other Pt SpecificInfo: Prescription(s) given Scripts Albuterol 18 GM Inh (Ventolin Hfa 18 GM Inh) 90 Mcg/Act Aer 2 PUFF INH Q4-6H Y for SHORTNESS OF BREATH, #1 INHALER 0 Refills Prov: Trino Keene MD 07/08/17 Disposition: 01 DISCHARGE HOME Condition: Stable Trino Keene MD Jul 08, 2017 15:23
== END 2017-07-08 15:36 | disposition home or self-care (01) ==
LOC: PHED 14:48
DX: J20.9 Acute bronchitis, unspecified (principal); R06.2 Wheezing; I10 Essential (primary) hypertension; M19.90 Unspecified osteoarthritis, unspecified site; J45.909 Unspecified asthma, uncomplicated; K21.9 Gastro-esophageal reflux disease without esophagitis; Z87.39 Personal history of other diseases of the musculoskeletal system and connective tissue; Z86.69 Personal history of other diseases of the nervous system and sense organs; Z86.59 Personal history of other mental and behavioral disorders
CPT/HCPCS: 99283